=== PATIENT | female | born 1955 | race African-American/Black ===

== ENCOUNTER 2023-07-12 11:01 | Emergency (ER) | payer OTHER, SELFPAY ==
[2023-07-12 11:08] VITALS: BP 178/89
[2023-07-12 11:37] VITALS: BMI 27.5
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
[2023-07-12] MEDS: NSS 1000 IV (12:36)
[2023-07-12 12:50] LABS: % Basophils 0.2 % (0-2); % Eosinophils 0.5 % (0-6); % Immature Granulocytes 0.3 % (0-0.5); % Lymphocytes 15.6 % (20.5-51.1); % Neutrophils 78.4 % (42.2-75.2); Absolute Eosinophils 0.1 10^3/uL (0-0.7); Absolute Lymphocytes 1.8 10^3/uL (1.2-3.4); Absolute Monocytes 0.6 10^3/uL (0.1-0.6); Absolute Neutrophils 9.1 10^3/uL (1.4-6.5); Hematocrit 40.8 % (37.0-47.0); Hemoglobin 13.8 g/dL (12.0-16.0); Mean Corp Hgb Conc. 33.8 g/dL (33.0-37.0); Mean Corpuscular Hgb 31.4 pg (27.0-31.0); Mean Corpuscular Volume 92.9 fL (81.0-99.0); Mean Platelet Volume 12.8 fL (7.4-10.4); Nucleated Red Blood Cells % 0 %; Platelet Count 159 10^3/uL (130-400); Red Blood Cell Count 4.39 10^6/uL (4.20-5.40); Red Cell Dist. Width 13.4 % (11.5-14.5); White Blood Cell Count 11.6 10^3/uL (4.8-10.8)
[2023-07-12 13:06] LABS: ALT (SGPT) 26 U/L (0-35); AST (SGOT) 30 U/L (14-36); Albumin 4.5 g/dl (3.5-5.0); Alkaline Phosphatase 96 U/L (38-126); Blood Urea Nitrogen 22 mg/dl (7-17); Calcium 10.4 mg/dl (8.4-10.2); Carbon Dioxide 28 mmol/L (22-30); Chloride 99 mmol/L (98-107); Estimated Creatinine Clearance 85 ml/min; Glucose 184 mg/dl (70-99); Potassium 3.8 mmol/L (3.5-5.1); Sodium 135 mmol/L (135-145); Total Bilirubin 0.6 mg/dl (0.2-1.3); Total Protein 7.4 g/dl (6.3-8.2); eGFR > 60.00
[2023-07-12 13:14] LABS: NT-proBNP 244 pg/ml
[2023-07-12 13:20] VITALS: BP 188/92
[2023-07-12 13:53] LABS: Lactic Acid 1.1 mmol/L (0.7-2.0)
[2023-07-12 14:46] LABS: Urine Albumin Negative (Neg - Trace); Urine Bilirubin Negative (Negative); Urine Character Clear (Clear); Urine Color Yellow; Urine Glucose Negative (Negative); Urine Ketone 1+ (Negative); Urine Leukocyte 1+ (Negative); Urine Nitrite Negative (Negative); Urine Occult Blood Negative (Negative); Urine Specific Gravity 1.015 (<1.030); Urine Urobilinogen Negative (Neg - 1+); Urine pH 6.5 (5.0-9.0)
[2023-07-12 15:08] LABS: Urine Red Blood Cell 0-2 /HPF (0-2)
[2023-07-12 15:09] LABS: Urine Bacteria Moderate (Negative)
== END 2023-07-12 16:28 | disposition home or self-care (01) ==
LOC: EMR 11:01
PROVIDERS: EMERGENCY PHYSICIAN Emergency Medicine; FAMILY PHYSICIAN Internal Medicine
DX: N39.0 Urinary tract infection, site not specified (principal); I10 Essential (primary) hypertension
CPT/HCPCS: 99284; 96360; 70450; 80053; 81003; 81015; 83605; 83880; 85025; 87040; 87086

== ENCOUNTER 2023-07-18 11:52 | Emergency (ER) | payer OTHER, SELFPAY ==
[2023-07-18 11:55] VITALS: BP 175/93
[2023-07-18 12:35] LABS: % Basophils 0.2 % (0-2); % Eosinophils 0.6 % (0-6); % Immature Granulocytes 0.3 % (0-0.5); % Lymphocytes 15.1 % (20.5-51.1); % Monocytes 5.4 % (1.7-9.3); % Neutrophils 78.4 % (42.2-75.2); Absolute Eosinophils 0.1 10^3/uL (0-0.7); Absolute Immature Granulocytes 0.1 10^3/uL (0-0.05); Absolute Lymphocytes 2.2 10^3/uL (1.2-3.4); Absolute Monocytes 0.8 10^3/uL (0.1-0.6); Absolute Neutrophils 11.6 10^3/uL (1.4-6.5); Hematocrit 40.7 % (37.0-47.0); Hemoglobin 14.2 g/dL (12.0-16.0); Mean Corp Hgb Conc. 34.9 g/dL (33.0-37.0); Mean Corpuscular Hgb 32.1 pg (27.0-31.0); Mean Corpuscular Volume 91.9 fL (81.0-99.0); Mean Platelet Volume 12.7 fL (7.4-10.4); Nucleated Red Blood Cells % 0 %; Platelet Count 164 10^3/uL (130-400); Red Blood Cell Count 4.43 10^6/uL (4.20-5.40); Red Cell Dist. Width 13.4 % (11.5-14.5); White Blood Cell Count 14.8 10^3/uL (4.8-10.8)
[2023-07-18 12:57] LABS: ALT (SGPT) 25 U/L (0-35); AST (SGOT) 33 U/L (14-36); Albumin 4.6 g/dl (3.5-5.0); Alkaline Phosphatase 81 U/L (38-126); Blood Urea Nitrogen 24 mg/dl (7-17); Calcium 10.4 mg/dl (8.4-10.2); Carbon Dioxide 28 mmol/L (22-30); Chloride 100 mmol/L (98-107); Glucose 201 mg/dl (70-99); Potassium 3.7 mmol/L (3.5-5.1); Sodium 136 mmol/L (135-145); Total Bilirubin 0.6 mg/dl (0.2-1.3); Total Protein 7.7 g/dl (6.3-8.2); eGFR > 60.00
[2023-07-18 14:47] VITALS: BP 157/97
[2023-07-18 15:34] VITALS: BMI 28.1
[2023-07-18 15:38] VITALS: BP 146/98
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
[2023-07-18 16:53] VITALS: BP 158/80
[2023-07-18 17:16] LABS: Glucose - Point of Care 105 mg/dl (70-99)
--- NOTE | 2023-07-18 17:18 | ED TECH ---
Pt's daughter from [place] calling nurse unit manager desk repeatedly for updates and concerns of pt, and pt , as they are diabetics, threatening to call patient advocacy and police on hospital for long wait time and 'lack of care for her diabetes.'. Pts
daughter stating, 'My mother could stroke out with a bp that high. I work in healthcare and have been trying to give you the benefit of doubt but will call who I need to.' BP checked several times in triage and in pt room. This PCT made Hilaria
Nhi aware of the situation and offered pt's daughter to speak to her, but she refused and hung up the phone. Pts daughter wanted food and drink provided to pt and her for their sugars. This PCT went into room and offered both food and
drink. 2 boxed lunches were provided and pts sugar was checked, reading 105. said he felt his sugar was fine. Nurse made aware and pt waiting on discharge per Dr. Lozano.
== END 2023-07-18 18:32 | disposition home or self-care (01) ==
LOC: EMR 11:52
PROVIDERS: Emergency Medicine; EMERGENCY PHYSICIAN Emergency Medicine; FAMILY PHYSICIAN Internal Medicine
DX: I10 Essential (primary) hypertension (principal); E11.65 Type 2 diabetes mellitus with hyperglycemia
CPT/HCPCS: 99284; 80053; 82962; 85025; 93005